=== PATIENT | female | born 1980 | race Caucasian/White ===

== ENCOUNTER → 2018-09-29 | Outpatient (CLI) | payer BC ==
--- NOTE | 2018-09-29 08:40 | US ---
EXAMINATION TYPE: US transvaginal DATE OF EXAM: 09/29/2018 COMPARISON: NONE CLINICAL HISTORY: N93.8 Dysfunctional uterine bleeding. TECHNIQUE: Transvaginal (TV). Date of LMP: 09/21/2018 EXAM MEASUREMENTS: Uterus: 8.6 x 4.1 x 4.9 cm Endometrial Stripe: 1.1 cm Right Ovary: 2.2 x 1.4 x 1.9 cm Left Ovary: 2.6 x 1.4 x 2.7 cm 1. Uterus: Anteverted Nabothian cyst measures 1.3 x 0.9 x 1.4 cm 2. Endometrium: measures 1.1 cm 3. Right Ovary: wnl 4. Left Ovary: dominant follicle measures 1.1 x 1.0 x 1.2 cm 5. Bilateral Adnexa: wnl 6. Posterior cul-de-sac: no free fluid IMPRESSION: Endometrium abnormally thickened for proliferative phase of menstrual cycle. Consider fur ther investigation with dilatation and curettage.
== END | disposition home or self-care (01) ==
LOC: RADUSWWP 07:58
PROVIDERS: ATTEND Obstetrics & Gynecology
DX: R93.89 Abnormal findings on diagnostic imaging of other specified body structures (principal); N93.8 Other specified abnormal uterine and vaginal bleeding
CPT/HCPCS: 76830

== ENCOUNTER → 2018-12-11 | Outpatient (CLI) | payer BC ==
--- NOTE | 2018-12-12 13:53 | MM ---
Reason for exam: screening (asymptomatic). History: Patient history of other cancer and had first child at age 30. Physical Findings: A clinical breast exam by your physician is recommended on an annual basis and results should be correlated with mammographic findings. MG Screening Mammo w CAD Bilateral CC and MLO view(s) were taken. The breast tissue is heterogeneously dense. This may lower the sensitivity of mammography. No suspicious abnormality. No significant changes when compared with prior studies. ASSESSMENT: Negative, BI-RAD 1 RECOMMENDATION: Routine screening mammogram of both breasts in 1 year.
== END ==
LOC: RADMAMWWP 13:27
PROVIDERS: ATTEND Obstetrics & Gynecology
DX: Z12.31 Encounter for screening mammogram for malignant neoplasm of breast (principal)
CPT/HCPCS: 77067

== ENCOUNTER 2020-08-27 00:24 | Emergency (ER) | payer BC ==
[2020-08-27 00:29] VITALS: BP 170/90; PULSE 90; RESP 19; TEMP 97.8
[2020-08-27] MEDS ORDERED: LIDOCAINE 1%-EPI 1:100,000 20 ML VIAL SQ STA (00:36)
--- NOTE | 2020-08-27 00:49 | ED ---
Wound/Laceration HPI - General Chief Complaint: Wound/Laceration Stated Complaint: Fall, lip injury Time Seen by Provider: 08/27/20 00:34 Source: patient Mode of arrival: ambulatory - History of Present Illness Initial Comments: 39yo presenting for right lower lip laceration just prior to arrival. Patient states that she slipped and fell due to what slippers after going outside. Patient states that she fell and signed hit the right side of her lip she states she bleeds or treatment through the lip. Patient denies any loss of consciousness she denies anticoagulation use. She states her tetanus up-to-date she denies any tooth injury. She denies any headaches nausea vomiting visual changes she has a neck pain. Remaining review of system negative patient's that she presented because she cannot get her lip to stop bleeding. Tetanus up-to-date per patient - Related Data Allergies Allergy/AdvReac Type Severity Reaction Status Date / Time codeine Allergy Anaphylaxis Verified 08/27/20 00:31 morphine Allergy Anaphylaxis Verified 08/27/20 00:31 NSAIDS (Non-Steroidal Allergy Anaphylaxis Verified 08/27/20 00:31 Anti-Inflamma oxycodone Allergy Anaphylaxis Verified 08/27/20 00:31 Review of Systems ROS Statement: Those systems with pertinent positive or pertinent negative responses have been documented in the HPI. ROS Other: All systems not noted in ROS Statement are negative. Past Medical History Past Medical History: No Reported History History of Any Multi-Drug Resistant Organisms: None Reported Past Surgical History: No Surgical Hx Reported Past Psychological History: No Psychological Hx Reported Smoking Status: Current every day smoker Past Alcohol Use History: Occasional Past Drug Use History: None Reported General Exam - General Exam Comments Initial Comments: General: The patient is awake and alert, in no distress Eye: +3 mm pupils are equal, round and reactive to light, extra-ocular movements are intact. No nystagmus. There is normal conjunctiva bilaterally. No signs of icterus. Ears, nose, mouth and throat: There are moist mucous membranes and no oral lesions. 1/2cm lip laceration involving ramin border of the right lower lip, small internal laceration cannot r/o through and through injury. no cracked teeth. Neck: The neck is supple, there is no tenderness or JVD. No midline tenderness to palpation of the cervical spine Cardiovascular: There is a regular rate and rhythm. No murmur, rub or gallop is appreciated. Respiratory: Lungs are clear to auscultation, respirations are non-labored, breath sounds are equal. No wheezes, stridor, rales, or rhonchi. Musculoskeletal: Normal ROM, no tenderness. Strength 5/5. Sensation intact. Radial pulses equal bilaterally 2+. Neurological: A&O x 3. CN II-XII intact, There are no obvious motor or sensory deficits. Coordination appears grossly intact. Speech is normal. Skin: Skin is warm and dry and no rashes or lesions are noted. Psychiatric: Cooperative, appropriate mood & affect, normal judgment. Course Vital Signs 08/27/20 00:27 Temperature 97.8 F Pulse Rate 90 Respiratory 19 Rate Blood Pressure 170/90 O2 Sat by Pulse 98 Oximetry Procedures - Laceration Laceration #1 Consent Obtained: verbal consent Indication: laceration Site: lip Size (cm): 0 (0.5cm) Description: linear, involves ramin border Depth: simple, single layer Anesthetic Used: lidocaine 1%, with epi (0.25) Anesthesia Technique: local infiltration Amount (mls): 0 (0.25mL) Pre-repair: wound explored, irrigated extensively, deep structures intact Type of Sutures: nylon Size of Sutures: 6-0 Number of Sutures: 1 Technique: simple, interrupted Patient Tolerated Procedure: well, no complications Medical Decision Making - Medical Decision Making 39-year-old female presented for fall no focal neurological deficits. She d enies any direct head injury she states that it was her lip and face mostly. Laceration repair after cleansing, patient tolerated well no neck pain no additional complaints tetanus up-to-date. Patient discharged appearing well. Dr. Moon attending. Disposition Clinical Impression: Lip laceration Disposition: HOME SELF-CARE Condition: Good Instructions (If sedation given, give patient instructions): Care For Your Stitches (ED), Facial Laceration (ED) Additional Instructions: Please follow-up with family doctor in the next 2 days, return for suture removal in 4-5 days. Please return to emergency room if the symptoms increase or worsen or for any other concerns. Is patient prescribed a controlled substance at d/c from ED?: No Referrals: Stef Keyes DO [Primary Care Provider] - 1-2 days Time of Disposition: 00:49
== END 2020-08-27 00:55 | disposition home or self-care (01) ==
LOC: EC 00:24
DX: S01.511A Laceration without foreign body of lip, initial encounter (principal); F17.200 Nicotine dependence, unspecified, uncomplicated; Z88.5 Allergy status to narcotic agent; Z88.6 Allergy status to analgesic agent; W01.10XA Fall on same level from slipping, tripping and stumbling with subsequent striking against unspecified object, initial encounter
CPT/HCPCS: 12011; 99282

== ENCOUNTER → 2021-02-09 | Outpatient (CLI) | payer BC ==
--- NOTE | 2021-02-09 09:57 | MM ---
Reason for exam: clinical finding. Last mammogram was performed 2 years and 2 months ago. History: Patient has history of other cancer at age 25 and had first child at age 30. Family history of breast cancer in paternal aunt at age 40. Indicated problem(s): lump or thickening in the right breast. Physical Findings: Nurse did not find any significant physical abnormalities on exam. MG Diagnostic Mammo w CAD JARON Bilateral CC and MLO view(s) were taken. Prior study comparison: December 11, 2018, bilateral MG screening mammo w CAD. The breast tissue is heterogeneously dense. This may lower the sensitivity of mammography. Central left upper inner quadrant asymmetry does not persist on additional views. Right patient palpable marker around 9 o'clock. Possible 1.3cm nodular asymmetry have lateral subareolar region. These results were verbally communicated with the patient and result sheet given to the patient on 02/09/21. ASSESSMENT: Incomplete: need additional imaging evaluation, BI-RAD 0 RECOMMENDATION: Ultrasound of the right breast.
--- NOTE | 2021-02-09 09:58 | USB ---
Reason for exam: additional evaluation requested from abnormal screening. History: Patient has history of other cancer at age 25 and had first child at age 30. Family history of breast cancer in paternal aunt at age 40. US Breast RT Right complete breast ultrasound includes all four quadrants, the retroareolar region and axilla. Finding demonstrates a 0.6 x 0.5 x 0.5cm cystic, benign lesion at 8 o'clock. Precautionary 6 month follow up mammogram. These results were verbally communicated with the patient and result sheet given to the patient on 02/09/21. ASSESSMENT: Probably benign, BI-RAD 3 RECOMMENDATION: Follow-up diagnostic mammogram of the right breast in 6 months.
== END | disposition home or self-care (01) ==
LOC: RADMAMWWP 07:21
PROVIDERS: ATTEND Obstetrics & Gynecology
DX: N60.01 Solitary cyst of right breast (principal); Z85.9 Personal history of malignant neoplasm, unspecified; Z80.3 Family history of malignant neoplasm of breast
CPT/HCPCS: 77066

== ENCOUNTER 2021-03-13 05:46 | Day surgery (SDC) | payer BC ==
[2021-03-09 16:04] VITALS: BMI 25.2
--- NOTE | 2021-03-12 12:30 | P.HPOB ---
History of Present Illness H&P Date: 03/12/21 Chief Complaint: Dysfunctional uterine bleeding. This patient is a pleasant 40 yr female who presents for endometrial ablation secondary to DUB that has been going on for several years. Evaluation has included an ultrasound that showed only a possible fibroid (small 2-3 cm) and normal endometrial biopsy. Review of Systems Genitourinary: Reports as per HPI, Reports abnormal vaginal bleeding Past Medical History Past Medical History: Cancer, GERD/Reflux, Thyroid Disorder Additional Past Medical History / Comment(s): seasonal allergies. thyroid cancer with lymph node involvement received liquid radiation and sx History of Any Multi-Drug Resistant Organisms: None Reported Past Surgical History: Adenoidectomy, Section, Tonsillectomy Additional Past Surgical History / Comment(s): thyroidectomy,. joyce bunionectomy, lymph node removed from neck, Past Anesthesia/Blood Transfusion Reactions: No Reported Reaction Past Psychological History: No Psychological Hx Reported Smoking Status: Current some day smoker Past Alcohol Use History: None Reported Past Drug Use History: None Reported - Past Family History Father Family Medical History: Cancer Additional Family Medical History / Comment(s): prostate cancer Mother Additional Family Medical History / Comment(s): aortic aneursym Medications and Allergies Home Medications Medication Instructions Recorded Confirmed Type Cholecalciferol [Vitamin D3 (25 100 mcg PO HS 03/09/21 03/09/21 History Mcg = 1000 Iu)] Levothyroxine Sodium [Synthroid] 175 mcg PO DAILY 03/09/21 03/09/21 History Loratadine [Claritin] 10 mg PO HS 03/09/21 03/09/21 History Pantoprazole Sodium [Protonix] 40 mg PO HS 03/09/21 03/09/21 History Allergies Allergy/AdvReac Type Severity Reaction Status Date / Time codeine Allergy Anaphylaxis Verified 03/09/21 15:53 morphine Allergy Anaphylaxis Verified 03/09/21 15:53 NSAIDS (Non-Steroidal Allergy Anaphylaxis Verified 03/09/21 15:53 Anti-Inflamma oxycodone Allergy Anaphylaxis Verified 03/09/21 15:53 Exam - OBG Physical Exam Abdomen: bowel sounds normal, no diffuse tenderness, no bruit present, no guarding noted, no hepatomegaly, no splenomegaly, no mass Vulva: both: normal Vagina: normal moisture, no discharge Cervix: no lesion, no discharge Uterus: normal size, normal contour Adnexa: both: normal Results Endometrial biopsy x 2 was normal. Ultrasound shows normal endometrial thickness and possible 2.5 cm uterine fibroid. Assessment and Plan Assessment: This is a pleasant 40 yr female with longstanding DUB, negative evaluation, requesting endometrial ablation for treatment. I have discussed this surgery in detail including the risks of bleeding, infection, possible uterine perforation and/or thermal injury. She also understands that this is not a form of control and she should never become due to the risks to her/baby. All of the patient's questions have been answered and a written consent obtained. Plan is to proceed with hysteroscopy, D&C, and Novasure endometrial ablation. (1) Dysfunctional uterine bleeding Status: Chronic Code(s): N93.8 - OTHER SPECIFIED ABNORMAL UTERINE AND VAGINAL BLEEDING SNOMED Code(s): [id number]
[~2021-03-13 05:46] MED LIST: DEXAMETHASONE SOD PHOSPHATE 4 MG/ML 1 ML VIAL IV ONE; LACTATED RINGERS 1,000 ML IV SCH; MIDAZOLAM 2 MG/2 ML VIAL IV PRN; ONDANSETRON 4 MG/2 ML VIAL IVP ONE; Pre Op ABX Message 1 EACH MISC MISCELLANE ONE; SCOPOLAMINE 1.5MG/72HR PATCH TRANSDERM ONE
[2021-03-13] MEDS ORDERED: PROPOFOL 10 MG/ML 20 ML VIAL IV ONE (06:46)
[2021-03-13] MEDS ORDERED: fentaNYL (PF) 50 MCG/ML 2 ML AMP ONE (06:46)
[2021-03-13] MEDS ORDERED: LIDOCAINE 1% INJ 10MG/ML (20 ML MDV) ONE (06:46)
[2021-03-13] MEDS ORDERED: MIDAZOLAM 2 MG/2 ML VIAL ONE (06:46)
[2021-03-13] MEDS ORDERED: fentaNYL (PF) 50 MCG/ML 2 ML AMP IV PRN (07:00)
--- NOTE | 2021-03-13 07:27 | P.OP ---
Date of Procedure: 03/13/21 Preoperative Diagnosis: Dysfunctional uterine bleeding Postoperative Diagnosis: Same Procedure(s) Performed: #1: Hysteroscopy. #2: Dilation and curettage. #3: NovaSure endometrial ablation Anesthesia: MAC Surgeon: Jack Camilo Estimated Blood Loss (ml): 5 Urine output (ml): 50 Pathology: other (Uterine curettings) Condition: stable Disposition: PACU Indications for Procedure: Please see dictated H&P for intimate details of this patient's admission. Brief summary this pleasant 40-year-old 1 para 1 female long-standing dysfunctional uterine bleeding and was requesting endometrial ablation. Patient understands the surgery and risks and risks of infection, bleeding, possible uterine perforation, and/or thermal injury. All the patient's questions are answered and a written consent is obtained. Operative Findings: The uterine cavity appeared grossly normal. Description of Procedure: This patient is taken to the operating room where she is laid in the supine position. She subsequently undergoes general mask anesthesia without incident. With an adequate level of anesthesia she's placed in dorsal lithotomy position. She has a vaginal perineal prep and drape. Examination under anesthesia shows a mid position uterus of normal size. Bladder is drained for 50 mL of clear urine. Weighted speculum was placed in the posterior vagina. The anterior lip of the cervix was grabbed with an Allis clamp. The uterus is then sounded to 8.5 cm. Gentle dilation is then done of the endocervix to allow the hysteroscope into the uterine cavity. Hysteroscopy is performed with saline solution. Uterine cavity is measured a length of 6.0 cm. There is no evidence of any polyps, or fibroids. This done the hysteroscope was removed. Cervix is dilated more to allow a small curette easily uterine cavity and gentle but thorough 4 quadrant curettage is then done. With this done the NovaSure device is then opened. It is set at a length of 6.0 cm and seated at a 3.6 cm. With this done, it then passes the cavity integrity test is enabled at [address] setting for 55 seconds. With this done the NovaSure device is removed. Hysteroscopy is performed again and the uterine cavity appears to be ablated up to the endocervix. The Allis clamp and weighted speculum are removed. All counts are correct 3. There are no complications. Patient is awakened from anesthesia and taken recovery room satisfactory condition.
[2021-03-13 07:31] VITALS: TEMP 97
[2021-03-13 07:32] VITALS: RESP 16
[2021-03-13 08:31] VITALS: PULSE 68
[2021-03-13 08:34] VITALS: BP 151/85
== END 2021-03-13 08:50 | disposition home or self-care (01) ==
LOC: OR 05:46
PROVIDERS: ATTEND Obstetrics & Gynecology
DX: N93.8 Other specified abnormal uterine and vaginal bleeding (principal); E07.9 Disorder of thyroid, unspecified; K21.9 Gastro-esophageal reflux disease without esophagitis; Z98.890 Other specified postprocedural states; Z79.890 Hormone replacement therapy; Z79.899 Other long term (current) drug therapy; Z85.850 Personal history of malignant neoplasm of thyroid; Z80.42 Family history of malignant neoplasm of prostate; Z82.49 Family history of ischemic heart disease and other diseases of the circulatory system
CPT/HCPCS: 58563; 81025; 88305; J2250; J1100; J2405; J2001; J3010; J2704

== ENCOUNTER 2021-12-29 13:28 | Emergency (ER) | payer BC ==
[2021-12-29] MEDS ORDERED: SODIUM CHLORIDE 0.9% 2,000 ML IV STA (15:14)
[2021-12-29] MEDS ORDERED: HYDROmorphone 0.5 MG/0.5 ML SYRINGE IVP STA (15:14)
[2021-12-29] MEDS ORDERED: methylPREDNISolone SOD SUCCI 125 MG/2 ML VIAL IV STA (15:15)
[2021-12-29] MEDS ORDERED: diphenhydrAMINE 50 MG/ML 1 ML VIAL IVP STA (15:16)
[2021-12-29] MEDS ORDERED: FAMOTIDINE 20 MG/2 ML VIAL IV STA (15:16)
[2021-12-29 15:43] LABS: Basophils % (A) 1 %; Eosinophils # (A) 0.2 k/uL (0-0.7); Eosinophils % (A) 2 %; HCT 43.1 % (34.0-46.0); HGB 14.5 gm/dL (11.4-16.0); Lymphocytes # (A) 1.3 k/uL (1.0-4.8); Lymphocytes % (A) 18 %; MCH 32.6 pg (25.0-35.0); MCHC 33.6 g/dL (31.0-37.0); MCV 97.1 fL (80.0-100.0); Mean Platelet Volume 7.2; Monocytes # (A) 0.5 k/uL (0-1.0); Monocytes % (A) 6 %; Neutrophils # (A) 5.4 k/uL (1.3-7.7); Neutrophils % (A) 72 %; Platelet Count 224 k/uL (150-450); RBC 4.44 m/uL (3.80-5.40); RDW 12.2 % (11.5-15.5); WBC 7.5 k/uL (3.8-10.6)
[2021-12-29 16:16] LABS: Appearance,Urine Cloudy (Clear); Bilirubin,Urine Negative (Negative); Blood,Urine Negative (Negative); Color,Urine Colorless; Glucose,Urine (UA) Negative (Negative); Ketones,Urine Negative (Negative); Leukocyte Esterase,Urine Negative (Negative); Nitrite,Urine Negative (Negative); Protein,Urine Negative (Negative); RBC,Urine 1 /hpf (0-5); Specific Gravity,Urine 1.004 (1.001-1.035); Squamous Epithelial Cell,Urine <1 /hpf (0-4); Urobilinogen,Urine <2.0 mg/dL (<2.0)
[2021-12-29 16:21] LABS: ALT 12 U/L (4-34); AST 20 U/L (14-36); African American GFR (CKD) >90 (>60 ml/min/1.73 sqM); Albumin 4.1 g/dL (3.5-5.0); Alkaline Phosphatase 78 U/L (38-126); Anion Gap 5 mmol/L; Blood Urea Nitrogen 7 mg/dL (7-17); Calcium 8.6 mg/dL (8.4-10.2); Carbon Dioxide 26 mmol/L (22-30); Chloride 104 mmol/L (98-107); Glucose 97 mg/dL (74-99); Lipase 24 U/L (23-300); Non-African American GFR(CKD) >90 (>60 ml/min/1.73 sqM); Potassium 3.8 mmol/L (3.5-5.1); Sodium 135 mmol/L (137-145); Total Bilirubin 0.6 mg/dL (0.2-1.3)
--- NOTE | 2021-12-29 16:56 | CT ---
EXAMINATION TYPE: CT abdomen pelvis w con DATE OF EXAM: 12/29/2021 COMPARISON: None HISTORY: Lower abdominal pain, painful to palpait. CT DLP: 898.5 mGycm Automated exposure control for dose reduction was used. CONTRAST: Performed with IV Contrast, patient injected with 100 mL of Isovue 300. Images obtained from the diaphragm to the floor of the pelvis with IV contrast. The lung bases are clear of infiltrate. No pleural effusion. There is minimal subsegmental atelectasi s at the lung bases. Heart is normal. No pericardial effusion. Liver spleen and stomach pancreas gall bladder appear intact. The bile ducts are not dilated. There is no adrenal mass. Kidneys show satisfactory contrast opacification. There is no hydronephrosi s. Ureters are not dilated. Appendix is posterior and appears normal. Bladder distends smoothly. No i nguinal hernia. No free fluid in the pelvis. There is left adnexal 4 cm cystic fluid collection. There is no mesenteric edema. No ascites or free air. No bowel obstruction. The lumbar vertebrae have normal alignment. Posterior elements are intact. No compression fracture. T he bony pelvis is intact. Hip joints appear normal. Sacroiliac joints are intact. IMPRESSION: Normal appendix. Left ovarian 4 cm cyst
--- NOTE | 2021-12-29 19:36 | ED ---
Abdominal Pain HPI - General Chief Complaint: Abdominal Pain Stated Complaint: abd pain, fever Time Seen by Provider: 12/29/21 15:00 Source: patient Mode of arrival: ambulatory Limitations: no limitations - History of Present Illness Initial Comments: Patient is a 41-year-old female who presents to the emergency department for evaluation of abdominal pain. Patient states the pain started 3 days ago in the lower abdomen and has gradually worsened. She describes the pain as consistent sharpness beneath her belly button. States states she went to the urgent care yesterday who did a urinalysis and test which was negative. Patient states she developed a fever last night, max temperature at 101.6F. Patient has not taken her temperature today. States the fever and consistent pain concerned her so she went back to urgent care today who sent her to the emergency department. States she took Tylenol early this morning which did not help her pain. Patient denies shortness of breath, chest pain, back pain, side pain, nausea, vomiting, diarrhea, burning with urination, blood in the urine, and vaginal discharge. Reports normal bowel movements, last one was yesterday. She does not have concern for sexually transmitted infections. Abdominal surgical history includes . - Related Data Home Medications Medication Instructions Recorded Confirmed Cholecalciferol [Vitamin D3 (25 100 mcg PO HS 03/09/21 03/09/21 Mcg = 1000 Iu)] Levothyroxine Sodium [Synthroid] 175 mcg PO DAILY 03/09/21 03/09/21 Loratadine [Claritin] 10 mg PO HS 03/09/21 03/09/21 Pantoprazole Sodium [Protonix] 40 mg PO HS 03/09/21 03/09/21 Previous Rx's Medication Instructions Recorded Ibuprofen [Motrin] 600 mg PO Q6HR PRN #30 tab 03/13/21 Allergies Allergy/AdvReac Type Severity Reaction Status Date / Time codeine Allergy Anaphylaxis Verified 12/29/21 13:55 morphine Allergy Anaphylaxis Verified 12/29/21 13:55 NSAIDS (Non-Steroidal Allergy Anaphylaxis Verified 12/29/21 13:55 Anti-Inflamma oxycodone Allergy Anaphylaxis Verified 12/29/21 13:55 shellfish derived [Shellfish] Allergy Anaphylaxis Verified 12/29/21 16:45 Review of Systems ROS Statement: Those systems with pertinent positive or pertinent negative responses have been documented in the HPI. ROS Other: All systems not noted in ROS Statement are negative. Past Medical History Past Medical History: Cancer, GERD/Reflux, Thyroid Disorder Additional Past Medical History / Comment(s): seasonal allergies. thyroid cancer with lymph node involvement received liquid radiation and sx History of Any Multi-Drug Resistant Organisms: None Reported Past Surgical History: Adenoidectomy, Section, Tonsillectomy Additional Past Surgical History / Comment(s): thyroidectomy,. joyce bunionectomy, lymph node removed from neck, Past Anesthesia/Blood Transfusion Reactions: No Reported Reaction Past Psychological History: No Psychological Hx Reported Smoking Status: Current some day smoker Past Alcohol Use History: None Reported Past Drug Use History: None Reported - Past Family History Father Family Medical History: Cancer Additional Family Medical History / Comment(s): prostate cancer Mother Additional Family Medical History / Comment(s): aortic aneursym General Exam Limitations: no limitations General appearance: alert, in no apparent distress Head exam: Present: atraumatic, normocephalic, normal inspection Eye exam: Present: normal appearance, PERRL, EOMI. Absent: scleral icterus, co njunctival injection, periorbital swelling Respiratory exam: Present: normal lung sounds bilaterally. Absent: respiratory distress, wheezes, rales, rhonchi, stridor Cardiovascular Exam: Present: regular rate, normal rhythm, normal heart sounds. Absent: systolic murmur, diastolic murmur, rubs, gallop, clicks GI/Abdominal exam: Present: soft, tenderness, normal bowel sounds. Absent: distended, guarding, rebound, rigid Course Vital Signs 12/29/21 12/29/21 12/29/21 13:51 15:48 17:00 Temperature 98.4 F 97.6 F Pulse Rate 97 67 Respiratory 18 18 18 Rate Blood Pressure 203/125 193/116 165/98 O2 Sat by Pulse 100 100 Oximetry 12/29/21 12/29/21 12/29/21 17:57 18:00 20:00 Temperature 97.7 F 99.8 F H 98.0 F Pulse Rate 81 79 97 Respiratory 20 20 20 Rate Blood Pressure 165/98 158/109 195/116 O2 Sat by Pulse 97 97 96 Oximetry 12/29/21 12/29/21 20:45 21:00 Temperature 98.0 F 98.2 F Pulse Rate 100 89 Respiratory 22 20 Rate Blood Pressure 216/137 165/99 O2 Sat by Pulse 100 100 Oximetry - Reevaluation(s) Reevaluation #1: Still awaiting an ultrasound report. It was performed at 5:09 PM. Pain is controlled. 12/29/21 20:27 Medical Decision Making - Medical Decision Making This is a 41-year-old female who presents with lower abdominal pain and fever. Thorough history and examination were performed. Blood pressure elevated at 203/125 which may be due to pain. Patient initially afebrile however temper ature did increase to 99.8F during her stay. The abdomen is soft however there is significant tenderness inferior to the umbilicus. There is moderate tenderness with palpation of the left and right lower quadrant of the abdomen as well, left > right. With patient significant tenderness on exam as well as fever there is concern for intra-abdominal process. I will obtain laboratory studies and CT of the abdomen and pelvis with contrast. Pain control with Dilaudid. Laboratory studies are relatively unremarkable. Urinalysis does not indicate they have of infection or blood. CT of the abdomen and pelvis shows a left ovarian cyst at 4 cm. Upon further questioning patient states that she was told she may have a cyst when she was very young however no imaging was taken. Patient states she had any pain related to cysts that she knows of since. Despite patient having a bilateral abdominal tenderness, with significant abdominal pain with palpation and fever there is concern for torsion. Pelvic ultrasound with Doppler was obtained which was negative for torsion and showed a complex cyst of the left ovary that could be hemorrhagic. Results discussed with patient. Patient states her pain is improved and is eager to go home. Dr. Fox and I talked o patient in detail regarding her ovarian cyst. Patient informed that she is at high risk for ovarian torsion and because her pain is controlled she is okay to go home with strict return parameters. She is to follow-up with gynecology regarding her cysts. Patient states she will call tomorrow. Patient also educated on blood pressure. Her blood pressure was consistently elevated in the emergency department. It did respond to hydralazine. Patient states she does not have a history of high blood pressure. She is to follow-up with primary care regarding her blood pressure. She verbalizes understanding and is agreeable to this plan. Dr. Fox is my attending. - Lab Data Result diagrams: 12/29/21 15:21 12/29/21 16:02 Lab Results 12/29/21 12/29/21 12/29/21 Range/Units 15:21 15:21 15:21 WBC 7.5 (3.8-10.6) k/uL RBC 4.44 (3.80-5.40) m/uL Hgb 14.5 (11.4-16.0) gm/dL Hct 43.1 (34.0-46.0) % MCV 97.1 (80.0-100.0) fL MCH 32.6 (25.0-35.0) pg MCHC 33.6 (31.0-37.0) g/dL RDW 12.2 (11.5-15.5) % Plt Count 224 (150-450) k/uL MPV 7.2 Neutrophils % 72 % Lymphocytes % 18 % Monocytes % 6 % Eosinophils % 2 % Basophils % 1 % Neutrophils # 5.4 (1.3-7.7) k/uL Lymphocytes # 1.3 (1.0-4.8) k/uL Monocytes # 0.5 (0-1.0) k/uL Eosinophils # 0.2 (0-0.7) k/uL Basophils # 0.0 (0-0.2) k/uL Sodium (137-145) mmol/L Potassium (3.5-5.1) mmol/L Chloride (98-107) mmol/L Carbon Dioxide (22-30) mmol/L Anion Gap mmol/L BUN (7-17) mg/dL Creatinine (0.52-1.04) mg/dL Est GFR (CKD-EPI)AfAm (>60 ml/min/1.73 sqM) Est GFR (CKD-EPI)NonAf (>60 ml/min/1.73 sqM) Glucose (74-99) mg/dL Calcium (8.4-10.2) mg/dL Total Bilirubin (0.2-1.3) mg/dL AST (14-36) U/L ALT (4-34) U/L Alkaline Phosphatase (38-126) U/L Total Protein (6.3-8.2) g/dL Albumin (3.5-5.0) g/dL Lipase (23-300) U/L Urine Color Colorless Urine Appearance Cloudy H (Clear) Urine pH 6.0 (5.0-8.0) Ur Specific [place] 1.004 (1.001-1.035) Urine Protein Negative (Negative) Urine Glucose (UA) Negative (Negative) Urine Ketones Negative (Negative) Urine Blood Negative (Negative) Urine Nitrite Negative (Negative) Urine Bilirubin Negative (Negative) Urine Urobilinogen <2.0 (<2.0) mg/dL Ur Leukocyte Esterase Negative (Negative) Urine RBC 1 (0-5) /hpf Ur Squamous Epith Cells <1 (0-4) /hpf Urine HCG, Qual Not Detected (Not Detectd) 12/29/21 Range/Units 16:02 WBC (3.8-10.6) k/uL RBC (3.80-5.40) m/uL Hgb (11.4-16.0) gm/dL Hct (34.0-46.0) % MCV (80.0-100.0) fL MCH (25.0-35.0) pg MCHC (31.0-37.0) g/dL RDW (11.5-15.5) % Plt Count (150-450) k/uL MPV Neutrophils % % Lymphocytes % % Monocytes % % Eosinophils % % Basophils % % Neutrophils # (1.3-7.7) k/uL Lymphocytes # (1.0-4.8) k/uL Monocytes # (0-1.0) k/uL Eosinophils # (0-0.7) k/uL Basophils # (0-0.2) k/uL Sodium 135 L (137-145) mmol/L Potassium 3.8 (3.5-5.1) mmol/L Chloride 104 (98-107) mmol/L Carbon Dioxide 26 (22-30) mmol/L Anion Gap 5 mmol/L BUN 7 (7-17) mg/dL Creatinine 0.57 (0.52-1.04) mg/dL Est GFR (CKD-EPI)AfAm >90 (>60 ml/min/1.73 sqM) Est GFR (CKD-EPI)NonAf >90 (>60 ml/min/1.73 sqM) Glucose 97 (74-99) mg/dL Calcium 8.6 (8.4-10.2) mg/dL Total Bilirubin 0.6 (0.2-1.3) mg/dL AST 20 (14-36) U/L ALT 12 (4-34) U/L Alkaline Phosphatase 78 (38-126) U/L Total Protein 7.0 (6.3-8.2) g/dL Albumin 4.1 (3.5-5.0) g/dL Lipase 24 (23-300) U/L Urine Color Urine Appearance (Clear) Urine pH (5.0-8.0) Ur Specific [place] (1.001-1.035) Urine Protein (Negative) Urine Glucose (UA) (Negative) Urine Ketones (Negative) Urine Blood (Negative) Urine Nitrite (Negative) Urine Bilirubin (Negative) Urine Urobilinogen (<2.0) mg/dL Ur Leukocyte Esterase (Negative) Urine RBC (0-5) /hpf Ur Squamous Epith Cells (0-4) /hpf Urine HCG, Qual (Not Detectd) Disposition Clinical Impression: Acute abdomen, Fever, High blood pressure Disposition: HOME SELF-CARE Condition: Fair Instructions (If sedation given, give patient instructions): Ovarian Cyst (ED), Hypertension (ED) Additional Instructions: Please follow-up with your investment fund manager regarding the large cyst on her left ova ry. It is very important return if you experience new, concerning, or worsening symptoms. It is also very important that you follow up with your primary care provider regarding your blood pressure as it is very high in the emergency department. Is patient prescribed a controlled substance at d/c from ED?: No Referrals: Stef Keyes DO [Primary Care Provider] - 1-2 days Time of Disposition: 20:42
--- NOTE | 2021-12-29 20:28 | US ---
EXAMINATION TYPE: US pelvic complete DATE OF EXAM: 12/29/2021 COMPARISON: CT 12/29/21 CLINICAL HISTORY: rule out ovarian torsion. Rule out ovarian torsion based on CT findings today. TECHNIQUE: Transabdominal (TA). Date of LMP: February 2021 EXAM MEASUREMENTS: Uterus: 7.3 x 3.7 x 3.8 cm Right Ovary: 2.6 x 1.9 x 2.0 cm Left Ovary: 4.8 x 4.1 x 5.0 cm 1. Uterus: Anteverted Limited vis 2. Endometrium: Unable to delineated 3. Right Ovary: wnl; venous and arterial flow seen 4. Left Ovary: Complex area measuring 3.4 x 2.8 x 3.7 cm. Arterial and venous flow seen. Spectral, color and waveform doppler imaging shows good arterial and venous flow within the ovaries ; there is no evidence for ovarian torsion. 5. Bilateral Adnexa: wnl 6. Posterior cul-de-sac: wnl IMPRESSION: No evidence of ovarian torsion. There is a complex cyst on the left ovary that could be hemorrhagic c yst. Normal uterus size and contour.
[2021-12-29] MEDS ORDERED: hydrALAZINE HCL 20 MG/ML 1 ML VIAL IM STA (20:37)
[2021-12-29 21:04] VITALS: BP 165/99; PULSE 89; RESP 20; TEMP 98.2
== END 2021-12-29 21:00 | disposition home or self-care (01) ==
LOC: EC 13:28
DX: R50.9 Fever, unspecified (principal); I10 Essential (primary) hypertension; E07.9 Disorder of thyroid, unspecified; K21.9 Gastro-esophageal reflux disease without esophagitis; F17.209 Nicotine dependence, unspecified, with unspecified nicotine-induced disorders; R10.9 Unspecified abdominal pain; Z79.899 Other long term (current) drug therapy; Z79.83 Long term (current) use of bisphosphonates; Z88.5 Allergy status to narcotic agent; Z88.6 Allergy status to analgesic agent; Z91.018 Allergy to other foods
CPT/HCPCS: 36415; 80053; 83690; 85025; 81001; 81025; 93975; 76856; 74177; 99284; 96374; 96375; 96372; 96361; J0360; J1200; J2930; J1170; Q9967

== ENCOUNTER → 2022-03-09 | Outpatient (CLI) | payer BC ==
--- NOTE | 2022-03-09 11:07 | MM ---
Reason for Exam: Additional evaluation requested from prior study. Last screening mammogram was performed 12 month(s) ago. Patient History: Menarche at age 14. First Full-Term at age 30. Late child-bearing (after 28). Other cancer, age 25. Paternal aunt had breast cancer, age 40. Last menstrual period: 02/15/2021 Risk Values: Eloise 5 year model risk: 0.9%. NCI Lifetime model risk: 12.1%. Prior Study Comparison: 12/11/2018 Bilateral Screening Mammogram, [facility]. 02/09/2021 Bilateral Diagnostic Mammogram, [facility]. Tissue Density: The breast tissue is heterogeneously dense. This may lower the sensitivity of mammography. Findings: Analyzed By CAD. No suspicious masses or worrisome microcalcifications within either breast. Previously demonstrated right breast nodular asymmetry subareolar region is less conspicuous on today's exam. Overall Assessment: Benign, BI-RAD 2 Management: Screening Mammogram of both breasts in 1 year. A clinical breast exam by your physician is recommended on an annual basis and results should be correlated with mammographic findings. This exam should not preclude additional follow-up of suspicious palpable abnormalities. Results were given to the patient verbally at the time of exam. Electronically signed and approved by: Jarrell Clemons D.O.
== END | disposition home or self-care (01) ==
LOC: RADMAMWWP 10:40
PROVIDERS: ATTEND Obstetrics & Gynecology
DX: R92.8 Other abnormal and inconclusive findings on diagnostic imaging of breast (principal); Z80.3 Family history of malignant neoplasm of breast
CPT/HCPCS: 77066

== ENCOUNTER → 2024-03-30 | Day surgery (SDC) | payer BC ==
[~2024-03-30] MED LIST changes: -DEXAMETHASONE SOD PHOSPHATE 4 MG/ML 1 ML VIAL IV ONE; -LACTATED RINGERS 1,000 ML IV SCH; -MIDAZOLAM 2 MG/2 ML VIAL IV PRN; -ONDANSETRON 4 MG/2 ML VIAL IVP ONE; +PROPOFOL 10 MG/ML 20 ML VIAL IV ONE; -Pre Op ABX Message 1 EACH MISC MISCELLANE ONE; -SCOPOLAMINE 1.5MG/72HR PATCH TRANSDERM ONE
[2024-03-30 14:38] VITALS: TEMP 97.8
[2024-03-30] MEDS: LACTATED RINGERS 1,000 ML IV SCH (14:43)
--- NOTE | 2024-03-30 16:14 | P.PCN ---
Date of Procedure: 03/30/24 Procedure(s) Performed: BRIEF HISTORY: Patient is a 43-year-old pleasant white female scheduled for an elective colonoscopy as a part of screening for colon cancer. PROCEDURE PERFORMED: Colonoscopy. PREOPERATIVE DIAGNOSIS: Screening for colon cancer. IV sedation per Anesthesia. PROCEDURE: After informed consent was obtained, the patient, was brought into the endoscopy unit. IV sedation was administered by Anesthesia under continuous monitoring. Digital rectal examination was normal. Initially the Olympus CF-160 flexible video colonoscope was then inserted in the rectum, gradually advanced into the cecum without any difficulty. Careful examination was performed as the scope was gradually being withdrawn. Ileocecal valve and the appendiceal orifice were visualized and appeared normal. Prep was excellent. Mucosa of the cecum, ascending colon, transverse colon, descending colon, sigmoid colon, and rectum appeared normal. Retroflexion was performed in the rectum and no lesions were seen. The patient tolerated the procedure well. IMPRESSION: Normal-appearing colon from rectum to cecum no evidence of colorectal neoplasia. RECOMMENDATIONS: Findings of this examination were discussed with the patient as well as her family. She was advised to have repeat screening colonoscopy in 10 years..
[2024-03-30 16:51] VITALS: BP 143/92; PULSE 63; RESP 16
== END ==
LOC: ORWHC2ENDO 14:05
PROVIDERS: ATTEND Internal Medicine Gastroenterology
DX: Z12.11 Encounter for screening for malignant neoplasm of colon
CPT/HCPCS: 45378; 81025